=== PATIENT | female | born 1955 ===

== ENCOUNTER 2021-12-01 20:13 | Observation (INO) | payer MEDICARE, OTHER, SELFPAY ==
--- NOTE | ~2021-12-01 | XR_ITS ---
EXAMINATION: XR chest 1V Exam Date/Time: 12/01/2021 20:42 CDT HISTORY: WEAKNESS, CONFUSION TODAY Comparison: None available. RESULT: Lines, tubes, and devices: Surgical clips project over the lower neck. Anterior and posterior cervic al fusion hardware. Lungs and pleura: Clear. Cardiomediastinal silhouette: Unremarkable. Other: No acute osseous or upper abdominal finding. IMPRESSION: No acute cardiopulmonary process. Reviewed, dictated and finalized at location K.
--- NOTE | ~2021-12-01 | CT_ITS ---
EXAMINATION: CT brain wo con DATE: 12/01/2021 20:45 INDICATION: Altered mental status . TECHNIQUE: Computed tomography (CT) of the head was performed without intravenous contrast. The mA wa s adjusted according to patient size. Iterative reconstruction technique was employed. The dose-lengt h product was 605.33 mGy-cm. COMPARISON: None FINDINGS: No acute intracranial hemorrhage or extra-axial fluid collection. No hydrocephalus, mass, or herniation. No acute ischemic infarct. Unremarkable dural venous sinus attenuation. No acute osseous abnormality. Mild maxillary sinus mucosal thickening, otherwise the aerated spaces are clear. Atherosclerotic intracranial calcifications. IMPRESSION: No acute intracranial process. Reviewed, dictated and finalized at location K.
--- NOTE | ~2021-12-01 | MR_ITS ---
EXAMINATION: MR brain/brain stem wo/w con DATE: 12/02/2021 07:11 INDICATION: Transient global at the puncture TECHNIQUE: Magnetic resonance imaging (MRI) of the brain and brainstem was performed without and with 12 mL Multihance intravenous contrast. Sequences included sagittal and axial T1-weighted SE, axial d iffusion-weighted FS SE, axial T2*-weighted GRE, axial 3D SWAN, axial T2-weighted FLAIR, and axial T2 -weighted FSE. Postcontrast axial and coronal T1-weighted SE was obtained. Apparent diffusion coeffic ient (ADC) maps were created. COMPARISON: Head CT dated 12/01/2021 FINDINGS: There are no areas of restricted diffusion to suggest acute infarction. No intracranial hemorrhage or abnormal intracranial mass lesion. Diffuse scattered small foci of nonspecific increased T2-weighted signal intensity in the april and cerebral white matter, predominantly involving the periventricular white matter which is within normal limits for age and likely sequela of chronic small vessel ischemi c disease. There are no intraparenchymal signal abnormalities seen on the other pulse sequences. The ventricles are symmetric and normal in size. There are no abnormal extra-axial fluid collections. Bartolo w voids are seen in the cerebral arteries on the T2-weighted sequences consistent with their expected patency. Mild mucoperiosteal thickening in the bilateral ethmoid and maxillary sinuses. Visualized o rbits and soft tissues are unremarkable. There are no areas of abnormal enhancement on the post contr ast images. IMPRESSION: 1. No acute intracranial process. 2. Minimal scattered white matter T2 hyperintensity in the brain and april which is within normal limi ts for age and likely sequela of chronic small vessel schema disease. Reviewed, dictated and finalized at location A. IMPRESSION: 1. No acute intracranial process. 2. Minimal scattered white matter T2 hyperintensity in the brain and april which is within normal limits for age and likely sequela of chronic small vessel matt gallo disease.
[2021-12-01 20:21] VITALS: BP 134/60; PULSE 81; RESP 20; O2SAT 100; O2SAT 97
--- NOTE | 2021-12-01 20:31 | ECG_ITS ---
Measurements Intervals [place] Rate: 73 P: 67 LA: 186 QRS: 40 QRSD: 89 T: 32 QT: 337 QTc: 373 Interpretive Statements SINUS RHYTHM LOW QRS VOLTAGE IN EXTREMITY LEADS [QRS DEFLECTION < 0.5 mV IN LIMB LEADS] ABNORMAL ECG NO PREVIOUS ECG AVAILABLE FOR COMPARISON Electronically Signed On 12-02-2021 12:21:51 CDT by Piyush Andrade M.D.
--- NOTE | 2021-12-01 20:35 | ED.GENADULT ---
HPI - General Adult General Chief complaint: Altered Mental Status Stated complaint: Confusion Time Seen by Provider: 12/01/21 20:23 History of Present Illness HPI narrative: Patient is a 66-year-old female who presents the emergency department with chief complaint of altered mental status. Per the patient's family they are visiting from [place] patient has history of head and neck cancer and is followed by the [facility]. The patient reports that she was last known normal around 2 PM and was with other family members and was found at [facility] wandering around and not sure how she got there. The patient states that she is not really sure of the date states that it is summer but not sure of the year either. The patient is still able to describe her name. The family reports no weakness in the arms or legs no slurred speech. Related Data Allergies Allergy/AdvReac Type Severity Reaction Status Date / Time No Known Allergies Allergy Verified 12/01/21 21:12 Review of Systems Review of Systems: A 10 system review of systems was completed on the patient and is negative except for what is stated in the HPI. Nursing and ancillary documentation was reviewed. Exam Narrative: GENERAL: Well-appearing, well-nourished, and in no acute distress. HEAD: Normocephalic, atraumatic. EYES: PERRLA and EOMI. ENT: Nares clear, no rhinorrhea or epistaxis. Mucous membranes moist. NECK: Supple. CHEST: Clear to auscultation. No respiratory distress. HEART: Regular rate and rhythm. No murmur heard. Normal peripheral pulses. ABDOMEN: Soft, nontender, nondistended, normal active bowel sounds. EXTREMITIES: Normal range of motion. No edema. SKIN: Warm, dry, no rash. NEURO: No focal deficits. Alert and oriented x1. PSYCH: Normal mood and affect. Course Course Emergency Course: The patient is out of the lytic window. It was explained to the patient and the patient's family that the patient is not a candidate for tPA. A CT head showed no evidence of acute abnormality. CTA was unable to be obtained due to contrast allergy the case was discussed with the hospitalist the patient be admitted for observation Vital Signs Vital signs: Vital Signs Pulse Rate 81 12/01/21 20:21 Respiratory Rate 20 12/01/21 20:21 Blood Pressure 134/60 12/01/21 20:21 Pulse Oximetry 100 12/01/21 20:21 Pulse Rate 81 12/01/21 20:21 Respiratory Rate 20 12/01/21 20:21 Blood Pressure 151/73 H 12/01/21 22:01 Pulse Oximetry 100 12/01/21 22:01 Medical Decision Making Vital Signs Vital Signs: Vital Signs Pulse Rate 81 12/01/21 20:21 Respiratory Rate 20 12/01/21 20:21 Blood Pressure 134/60 12/01/21 20:21 Pulse Oximetry 100 12/01/21 20:21 Pulse Rate 81 12/01/21 20:21 Respiratory Rate 20 12/01/21 20:21 Blood Pressure 151/73 H 12/01/21 22:01 Pulse Oximetry 100 12/01/21 22:01 Lab Data Result diagrams: 12/01/21 21:05 12/01/21 21:05 Labs: Lab Results 12/01/21 12/01/21 12/01/21 Range/Units 21:05 21:05 21:05 WBC 6.6 (4.5-10.0) K/mm3 RBC 3.98 L (4.2-5.4) M/mm3 Hgb 11.3 L (12.0-15.0) g/dL Hct 35.3 L (37.0-47.0) % MCV 88.7 (80-100) fl MCH 28.4 (26-34) pg MCHC 32.0 (32-36) g/dl RDW 13.7 (11.5-14.5) % Plt Count 308 (150-375) k/mm3 MPV 9.2 (7.4-10.4) fl Immature Gran % (Auto) 0.2 (0-0.5) % Neut % (Auto) 62.5 (45.5-73.1) % Lymph % (Auto) 17.6 L (18.3-44.2) % [place] % (Auto) 13.7 H (2.6-8.5) % Eos % (Auto) 5.2 H (0-4.4) % Baso % (Auto) 0.8 (0.2-1.2) % Lymph # (Auto) 1.15 (0.9-3.2) K/mm3 [place] # (Auto) 0.9 H (0.1-0.6) K/mm3 Eos # (Auto) 0.3 (0-0.3) K/mm3 Baso # (Auto) 0.1 (0.0-0.1) K/mm3 Abs Immat Gran (auto) 0.01 (0.00-0.031) K/mm3 Absolute Neuts (auto) 4.1 (1.3-6.7) K/mm3 Absolute Nucleated RBC 0.0 (0.0-0.012) K/mm3 Nucleated RBC % 0.0 (0.0-0.2) % PT 13.4
[2021-12-01 21:12] LABS: Basophils Absolute Auto 0.1 K/mm3 (0.0-0.1); Basophils Percent Auto 0.8 % (0.2-1.2); Eosinophils Absolute Auto 0.3 K/mm3 (0-0.3); Eosinophils Percent Auto 5.2 % (0-4.4); Hematocrit 35.3 % (37.0-47.0); Hemoglobin 11.3 g/dL (12.0-15.0); Immature Granulocyte Absolute 0.01 K/mm3 (0.00-0.031); Immature Granulocyte Percent A 0.2 % (0-0.5); Lymphocytes Absolute Auto 1.15 K/mm3 (0.9-3.2); Lymphocytes Percent Auto 17.6 % (18.3-44.2); Mean Corpuscular Hemoglobin 28.4 pg (26-34); Mean Corpuscular Volume 88.7 fl (80-100); Mean Platelet Volume 9.2 fl (7.4-10.4); Monocytes Absolute Auto 0.9 K/mm3 (0.1-0.6); Monocytes Percent Auto 13.7 % (2.6-8.5); Neutrophils Absolute Auto 4.1 K/mm3 (1.3-6.7); Neutrophils Percent Auto 62.5 % (45.5-73.1); Platelet Count Result 308 k/mm3 (150-375); Red Blood Count 3.98 M/mm3 (4.2-5.4); Red Cell Distribution Width 13.7 % (11.5-14.5); White Blood Count 6.6 K/mm3 (4.5-10.0)
[2021-12-01] MEDS: SODIUM CHLORIDE 0.9% IV 1,000 ML 999 ML IV CONT (21:12)
[2021-12-01 21:18] LABS: Appearance Urine Slightly Cloudy (Clear); Bilirubin Urine Negative (Negative); Blood Urine 2+ (Negative); Glucose Urine UA Negative (Negative); Ketones Urine Negative (Negative); Leukocyte Esterase Ur Negative LEU/UL (Negative); Nitrate Urine Negative (Negative); Protein Urine Negative (Negative); Specific Grav Ur 1.015 (1.001-1.035); Urobilinogen Urine 0.2 mg/dL (<2.0)
[2021-12-01 21:19] LABS: Add Urine Microscopic? YES; Color Urine Light Yellow (Yellow)
[2021-12-01 21:23] LABS: INR 1.1; Lactic Acid Reflex 0.6 mmol/L (0.7-2.0); Partial Thromboplastin Time 30.2 SECONDS (22.3-36.8); Prothrombin Time 13.4 Seconds (11.1-14.7)
[2021-12-01 21:23] LABS: Bacteria Urine Trace /hpf; WBC Urine 0-3 /hpf
[2021-12-01 21:24] LABS: Alanine Aminotransferase 13 U/L (6-35); Albumin Level 4.6 g/dL (3.5-5.1); Alkaline Phosphatase 81 U/L (38-126); Anion Gap 10 mmol/L (8-16); Aspartate Amino Transferase 32 U/L (14-36); Bilirubin,Total 0.4 mg/dL (0.2-1.3); Blood Urea Nitrogen 37 mg/dL (7-17); Carbon Dioxide 27 mmol/L (22-30); Chloride 102 mmol/L (98-107); Estimated CRCL calculation 39 ml/min; Estimated Glomerular Filt Rate 49; Glucose 99 mg/dL (65-110); Potassium 4.1 mmol/L (3.4-5.0); Sodium 139 mmol/L (137-145)
[2021-12-01 21:27] LABS: Ammonia < 9 umol/L (9-30); Ethanol < 10 mg/dL (<10)
[2021-12-01 21:31] VITALS: BP 155/77; O2SAT 100
[2021-12-01 21:35] LABS: Amphetamine Screen Urine Negative (Negative); Barbiturate Screen Urine Negative (Negative); Benzodiazepines Screen Urine Negative (Negative); Cannabinoid Screen Urine Negative (Negative); Cocaine Screen Urine Negative (Negative); Methadone Screen Urine Negative (Negative); Opiate Screen Urine Negative (Negative); Phencyclidine Screen Urine Negative (Negative)
[2021-12-01 21:35] LABS: Troponin I < 0.012 ng/mL (0.000-0.034)
[2021-12-01 22:01] VITALS: BP 151/73; O2SAT 100
--- NOTE | 2021-12-01 22:53 | PM.IMHP ---
H&P: HPI History of Present Illness Date/Time: 12/01/21 22:53 Chief Complaint: Altered mental status Narrative: This is a 66-year-old female with past medical history significant for head and neck CA status post radiation and chemotherapy and surgical resection. Patient presents to the emergency room due to altered mental status found herself lost sister who is visiting with her from out of state said the had earlier in the day in 2 different groups and somehow she was by herself at a parking lot [place]. patient had no recollection of events how she got there or why she was there and no recollection of events now however patient now remembers driving from [place] and is oriented to time, place ,person and situation, sister who is at bedside has provide a great deal history. 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 Patient denies any fevers, rigors, chills, nausea, vomiting, diarrhea, abdominal pain, chest pain, syncope, near syncope, lightheadedness, headaches, vision changes, numbness, weakness. Preliminary workup was non revealing. PATIENT HAS BEEN ADMITTED FOR FURTHER EVALUATION MANAGEMENT AND TREATMENT. Review of Systems Review of Systems: Altered mental status with transient global amnesia patient found herself lost at parking lot by shopping center. ROS unobtainable: Yes unobtainable due to mental status PMFSH Family History Family History (Updated 12/02/21 @ 00:41 by Beverly Childers RN) Sibling Diabetes mellitus Epilepsy Mother Cerebrovascular accident Father Cerebrovascular accident Social History Social History Smoking status: Never smoker Alcohol intake: never Substance use: never Substance use type: does not use Spiritual care concerns: No Meds Home Medications and Allergies Allergies Allergy/AdvReac Type Severity Reaction Status Date / Time gabapentin Allergy Confusion Verified 12/02/21 00:35 Iodinated Contrast Media Allergy Rash Verified 12/02/21 00:29 Vital Signs Vital Signs - 24 hr 12/01/21 20:21 12/01/21 20:21 12/01/21 21:31 Pulse Rate 81 Respiratory Rate 20 Blood Pressure 134/60 134/60 155/77 H Pulse Oximetry 100 97 100 12/01/21 22:01 Pulse Rate Respiratory Rate Blood Pressure 151/73 H Pulse Oximetry 100 Exam Narrative: patient is laying stretcher Const: General: comfortable, no acute distress, well developed, alert and awake Nutritional Appearance: average body habitus Orientation/consciousness: patient oriented x3 Other: well-appearing HENMT: Head: normal to inspection, normocephalic and atraumatic Ears: hearing grossly normal bilaterally Face and sinus: normal facial exam Other: patient has significant tongue loss with multiple old surgical scars myocutaneous flap placement Eyes: General: appearance normal, both eyes and all related structures Sclera: sclerae normal Pupils: Equal, round and reactive pupils present EOM: EOMs intact bilaterally Neck: Neck: full ROM, no lymphadenopathy and no JVD Thyroid: thyroid normal Lymphatic: no lymphadenopathy noted Other: all surgical wound left side anterior triangle Resp: Effort & Inspection: normal respiratory effort and able to speak in complete sentences Auscultation: clear to auscultation bilaterally Cardio: Jugular venous distension: no JVD Rate: regular rate Rhythm: regular rhythm Heart sounds: S1 normal heart sound present and S2 normal heart sound present GI: Inspection: normal to inspection GI Palp: Yes Soft to palpation and Yes No hepatosplenomegaly present : General: Yes deferred Skin: Rashes: no rashes Neuro: General: patient oriented x3 and CN's II-XI intact bilaterally Cranial nerves: Yes CN's II-XII intact bilaterally and Yes Equal, round a
--- NOTE | 2021-12-01 23:21 | PC.NURSE ---
Assumed care of pt at this time. Pt A&Ox3, disoriented to situation.
[2021-12-01 23:49] VITALS: BP 142/73; PULSE 74; RESP 16; O2SAT 98
[2021-12-01 23:59] VITALS: TEMP 36.6
[2021-12-02] VITALS (7 sets, daily range): BP systolic 120–143; BP diastolic 55–69; PULSE 56–73; RESP 18; TEMP 36.1–36.8; O2SAT 97–98; BMI 23.4
--- NOTE | 2021-12-02 00:25 | ADMGEN ---
This patient, Kristina Luna, was admitted to [address] [facility] @0025. Patient/family oriented to hospital policies and general routines including ID bracelet, bed and alarms, visiting hours, pain management, procedures, bathroom and other care routines, personal items, smoking policy, room service/diet, and visiting hours. Information on how to activate the Rapid Response Team has been discussed. Patient/Family are encouraged to report perceived risks to care and to ask questions if they do not understand what they are told or what they should do.
[2021-12-02] MEDS: ACETAMINOPHEN 500 MG TABLET 1000 MG PO (01:06)
[2021-12-02 08:59] LABS: Anion Gap 10 mmol/L (8-16); Blood Urea Nitrogen 28 mg/dL (7-17); Calcium 9.2 mg/dL (8.4-10.2); Carbon Dioxide 27 mmol/L (22-30); Chloride 103 mmol/L (98-107); Estimated CRCL calculation 43 ml/min; Estimated Glomerular Filt Rate 55; Glucose 99 mg/dL (65-110); Sodium 140 mmol/L (137-145)
[2021-12-02] MEDS: CITALOPRAM HYDROBROMIDE 20 MG TABLET PO (09:26)
[2021-12-02] MEDS: LEVOTHYROXINE SODIUM 112 MCG TABLET PO (09:26)
[2021-12-02] MEDS: amLODIPine BESYLATE 5 MG TABLET PO (09:27)
[2021-12-02 09:58] LABS: Folic Acid 7.4 ng/mL (2.76->20)
--- NOTE | 2021-12-02 13:55 | PC.NURSE ---
Patient was informed Dr Sue would come to the floor after 1500 to see her. Patient stated she could not wait for him and needed to leave now to drive back to [place]. Patient signed out AMA. Education was given.
[2021-12-02 16:15] LABS: Free T4 Free Thyroxine Reflex 1.24 ng/dL (0.78-2.19)
--- NOTE | 2021-12-02 16:41 | PM.DS ---
DS: Admitting Diagnosis Discharge Date 12/02/21 Admitting Diagnosis Amnesia DS: Discharge Diagnosis Discharge Diagnosis (1) Altered mental status: Code(s): R41.82 - Altered mental status, unspecified Status: Acute Assessment and Plan: Differential includes transient global amnesia vs TIA vs seizure Head CT with no acute finding Brain MRI with results pending (see below) Will need outpatient EEG Obtain outpatient carotid Doppler ABCD2 score is 3 Normal TSH, B12, folate levels Recommendations for aspirin 81 mg daily per Neurology Follow-up with primary care provider tomorrow (2) History of head or neck cancer: Code(s): Z85.89 - Personal history of malignant neoplasm of other organs and systems Status: Acute Assessment and Plan: Followed by Oncology in [place] (3) Hypertension: Code(s): I10 - Essential (primary) hypertension Status: Acute Assessment and Plan: Blood pressure reviewed and was well controlled Continue amlodipine (4) Hypothyroidism: Code(s): E03.9 - Hypothyroidism, unspecified Status: Acute Assessment and Plan: TSH within normal limits Continue levothyroxine DS: Summary Hospital Course Hospital Course: Date of admission: 12/01/2021 Date of discharge: 12/02/2021 Kristina Luna is a 66-year-old female with a history of head and neck cancer, hypertension and hypothyroidism who presented to the emergency department on 12/01/2021 with complaints of confusion. The patient is originally from this area but currently resides in [place]. She and her sister drove to the area this weekend to visit family. She called her sister on the afternoon of 12/01 stating she was at [employer] store and could not recall how she got there or what she was doing there. She was taken to the emergency department. At that time she could state her name and knew she was in the hospital but could not recall taking the trip from [place] and could not state the year. On presentation to the ED, her vital signs were stable, she was afebrile, laboratory workup unremarkable, UA unremarkable, alcohol level and urine drug screen negative, CT of the head with no acute findings. She was admitted to the hospitalist service for further evaluation and management. Please see above for further details. On my initial evaluation of the patient, she was back to her baseline A&O x4 with no focal neurologic deficits. I discussed the case with Neurology. Differential diagnosis includes transient global amnesia vs TIA vs seizure. The patient already had an appointment scheduled with her primary care provider for the following day at 10:00 a.m. and wished to travel back to [place] so she could obtain her care back home. Neurology provided recommendations for outpatient follow-up to include carotid Doppler and EEG as an outpatient. She did have an MRI completed during her admission, however was not able to be read by Radiology as it was a Friday. Discussed with patient and family that without these results, acute stroke or other acute neurologic issue could not be ruled out. They did not wish to wait for these final results and will plan to contact medical records to have these results sent to the patient's PCP. The patient was eager for discharge home and given returned to baseline, was determined to no longer require inpatient care and was discharged in hemodynamically stable condition on 12/02/2021. Discussed with the patient worrisome signs and symptoms for which to seek emergency care and reinforced need for outpatient follow-up. Time Spent with Patient Time attestation: Total time spent providing and/or coordinating discharge services: 48 minutes Time spent: Greater than 30 minutes Exam Narrative: General: Well-nourished, well-appearing 66-year-old female, sitting up in bed, comfortable, NARD Neuro: awake, alert and oriented x4, speech clear, CN II-XII inta
[2021-12-02 17:42] LABS: Total Triiodothyronine (T3) 0.86 NG/ML (0.97-1.69)
== END 2021-12-02 13:55 | disposition home or self-care (01) ==
LOC: ANHED 23:09 → ANH2MED 23:39
PROVIDERS: Admitting Provider Internal Medicine; Emergency Provider Emergency Medicine; Visit Provider Physician Assistant
DX: R41.82 Altered mental status, unspecified (principal); Z85.89 Personal history of malignant neoplasm of other organs and systems; I10 Essential (primary) hypertension; E03.9 Hypothyroidism, unspecified; R94.31 Abnormal electrocardiogram [ECG] [EKG]; Z79.899 Other long term (current) drug therapy; Z82.3 Family history of stroke
CPT/HCPCS: 36415; 70450; 70553; 71045; 80048; 80053; 80307; 81001; 82140; 82607; 82746; 83605; 84439; 84443; 84480; 84484; 85025; 85610; 85730; 93005; 96360; 96361; 99285; A9270; A9577; G0378; J7030